=== PATIENT | female | born 1970 | race African-American/Black ===

== ENCOUNTER 2022-09-14 09:26 | Emergency (ER) | payer MEDICAID, OTHER ==
[~2022-09-14] VITALS: Ht 170.2 cm; Wt 90.7 kg
[2022-09-14] MEDS ORDERED: AMOX-430 PO (09:48)
[2022-09-14] MEDS ORDERED: DEXAMETHASONE 4 MG TABLET ONE (09:54)
[2022-09-14 10:00] VITALS: BP 120/82
[2022-09-14] MEDS ORDERED: DEXAMETHASONE 1 MG TABLET PO ONE (10:00)
[2022-09-14] MEDS ORDERED: DEXAMETHASONE SOD PHOSPHATE 10 MG/ML VIAL ONE (10:05)
== END 2022-09-14 10:01 | disposition home or self-care (01) ==
LOC: ER 09:33
DX: J02.9 Acute pharyngitis, unspecified (principal); J06.9 Acute upper respiratory infection, unspecified; Z79.899 Other long term (current) drug therapy; Z88.2 Allergy status to sulfonamides; Z88.1 Allergy status to other antibiotic agents
CPT/HCPCS: 99283; J1100; J8540

== ENCOUNTER 2024-07-06 18:18 | Emergency (ER) | payer MEDICAID, OTHER ==
[~2024-07-06] VITALS: Ht 170.2 cm; Wt 85.7 kg
[~2024-07-06 18:18] MED LIST: AMOX-430 PO
[2024-07-06 18:42] VITALS: BP 103/81; TEMP 98.6; O2SAT 98
== END 2024-07-06 21:50 | disposition home or self-care (01) ==
LOC: ER 18:25
DX: J06.9 Acute upper respiratory infection, unspecified (principal); J02.8 Acute pharyngitis due to other specified organisms; Z88.1 Allergy status to other antibiotic agents; Z88.5 Allergy status to narcotic agent; R05.9 Cough, unspecified
CPT/HCPCS: 71045-TC

== ENCOUNTER 2024-09-29 14:07 | Emergency (ER) | payer MEDICAID, OTHER ==
[~2024-09-29] VITALS: Ht 170.2 cm; Wt 81.6 kg
[2024-09-29 14:22] VITALS: TEMP 98.3
[2024-09-29 15:13] LABS: APPEARANCE,URINE CLEAR (CLEAR); BILIRUBIN,URINE NEGATIVE (NEGATIVE); BLOOD, URINE NEGATIVE Ery/uL (NEGATIVE); COLOR,URINE YELLOW (YELLOW); KETONES,URINE NEGATIVE (NEGATIVE); LEUKOCYTE ESTERASE ,URINE 1+ (NEGATIVE); NITRITE, URINE NEGATIVE (NEGATIVE); PROTEIN,URINE NEGATIVE (NEGATIVE); UGLUCOSE NEGATIVE (NEGATIVE); UROBILINOGEN,URINE 0.2 EU/dL (0.2)
[2024-09-29 15:29] LABS: ADD URINE CULTURE YES; BACTERIA,URINE 1+ /HPF (None Seen); RBC,URINE 0-2 /HPF (0-2)
[2024-09-29 15:30] LABS: SQUAMOUS EPITHELIAL CELL,UR 0-2 /HPF (None Seen)
[2024-09-29] MEDS ORDERED: CYCL5TAB PO (15:58)
[2024-09-29] MEDS ORDERED: LIDO30AD10 TP (15:58)
[2024-09-29] MEDS ORDERED: KETOROLAC TROMETHAMINE 15 MG/ML VIAL ONE (16:05)
[2024-09-29] MEDS: KETOROLAC TROMETHAMINE 15 MG/ML VIAL IM ONE (16:12)
[2024-09-29 16:15] LABS: BASOPHILS % (AUTO) 0.4 % (0.0-2.0); EOSINOPHILS % (AUTO) 0.6 % (0.0-6.0); HEMATOCRIT 37 % (33-45); HEMOGLOBIN 12.2 g/dL (11.5-14.8); LYMPHOCYTES # (AUTO) 1.6 K/uL (0.8-4.8); MEAN CORPUSCULAR HEMOGLOBIN 27 PG (26.0-33.0); MEAN CORPUSCULAR HGB CONC 33 g/dl (31.0-36.0); MEAN CORPUSCULAR VOLUME 81 fL (82-100); MONOCYTES # (AUTO) 0.2 K/uL (0.1-1.30); MONOCYTES % (AUTO) 5.3 % (2.0-12.0); NEUTROPHILS # (AUTO) 1.9 K/uL (1.8-8.9); NEUTROPHILS % (AUTO) 51.7 % (43.0-81.0); PLATELET COUNT (AUTO) 260 K/uL (150-450); RED BLOOD CELL COUNT(AUTO) 4.54 MIL/uL (4.0-5.2); RED CELL DISTRIBUTION WIDTH 13.6 % (11.5-15.0); WHITE BLOOD COUNT (AUTO) 3.7 K/uL (4.3-11.0)
[2024-09-29 16:39] LABS: CALCIUM, SERUM 10.2 mg/dL (8.5-10.1); CREATININE 0.7 mg/dL (0.6-1.3); POTASSIUM 4.1 mmol/L (3.5-5.1)
[2024-09-29 16:44] LABS: BILIRUBIN,DIRECT 0.2 mg/dL (0.0-0.2); TOTAL PROTEIN, SERUM 7.5 g/dL (6.4-8.2)
[2024-09-29 17:30] VITALS: BP 118/64
[2024-09-29 19:03] VITALS: O2SAT 99
== END 2024-09-29 17:50 | disposition home or self-care (01) ==
LOC: ER 14:11
DX: M54.59 Other low back pain (principal); Z88.1 Allergy status to other antibiotic agents; Z88.5 Allergy status to narcotic agent; Z79.899 Other long term (current) drug therapy
CPT/HCPCS: 99285; 74176; 96372; 85025; 80048; 83690; 80076; 81001; 36415; J1885; 87086-TC